=== PATIENT | male | born 1955 | race Caucasian/White ===

== ENCOUNTER → 2016-10-21 | Outpatient (CLI) | payer BC ==
--- NOTE | 2016-10-21 10:55 | CT ---
EXAMINATION TYPE: CT sinus wo con DATE OF EXAM: 10/21/2016 9:37 AM COMPARISON: NONE HISTORY: 61-year-old male with Anosmia CT DLP: 586 mGycm Automated exposure control for dose reduction was used. Technique: Noncontrast axial views of the paranasal sinuses were obtained. Coronal reconstructions pe rformed. FINDINGS: The frontal, ethmoid, right maxillary and bilateral sphenoid sinuses are clear and well pneumatized. Small 8 mm polyp or mucosal retention cyst along the roof of the left maxillary sinus. There is no mucosal thickening or air-fluid level. Reactive kesha- osteogenesis is not seen. There is no destruction of the osseous garrison of the paranasal sinuses. The osteomeatal complexes are patent. There is rightward nasal septal deviation. The imaged brain shows no gross abnormality. There is suggestion of an old medial orbital wall fracture on the right. Mastoid air cells and middle ear cavities are well pneumatized. Reformatted images confirm above findings. IMPRESSION: 1. Small 8 mm polyp or mucosal retention cyst along the roof of the left maxillary sinus. Otherwise, no significant paranasal sinus disease. 2. Rightward nasal septal deviation. 3. Old medial orbital wall fracture on the right.
== END | disposition home or self-care (01) ==
LOC: RADCTMAIN 09:23
PROVIDERS: ATTEND Internal Medicine
DX: J34.2 Deviated nasal septum (principal); R43.0 Anosmia; Z87.81 Personal history of (healed) traumatic fracture
CPT/HCPCS: 70486